=== PATIENT | male | born 1970 | race American Indian/Alaskan Native ===

== ENCOUNTER 2020-11-01 21:32 | Emergency (ER) | payer SELFPAY ==
[2020-11-01 22:04] VITALS: BP 142/95; PULSE 74
--- NOTE | 2020-11-01 22:15 | EDM.PDOC ---
ED HPI GENERAL MEDICAL PROBLEM - General Chief Complaint: Respiratory Problem Stated Complaint: DIFFICULTY BREATHING,PAIN ALL OVER BODY Time Seen by Provider: 11/01/20 22:00 Source of Information: Reports: Patient, RN, RN Notes Reviewed History Limitations: Reports: Altered Mental Status, Respiratory Distress - History of Present Illness INITIAL COMMENTS - FREE TEXT/NARRATIVE: Je is a 50 y/o male with a personal history of thyroid cancer with lung metastases who presents to the ED via personal vehicle with complaints of shortness of breath. The patient reports he was to receive radiation and chemotherapy via an oncologist in [place], though is unable to state which provider at which facility at this time. The patient reports his breathing became labored about one week ago and has progressively worsened in that time. He has not taken any medications for this problem as he reports he is homeless and currently staying at a friends house. The patient denies fever, shaking chills, vision changes, palpitations, dyspepsia, vomiting, dysuria, or diarrhea. He does attest to chest pain with deep breaths and nausea. The patient attest to smoking 1/4 pack of cigarettes per day. Additionally, he has been drinking alcohol for the past few days and smoked methamphetamines last night. - Related Data Allergies Allergy/AdvReac Type Severity Reaction Status Date / Time ampicillin Allergy Cannot Verified 11/01/20 21:57 Remember Home Meds: Home Meds Ibuprofen [Motrin] 800 mg PO Q8H PRN 03/23/15 [History] Past Medical History - Past Health History Medical/Surgical History: Denies Medical/Surgical History Cardiovascular History: Reports: Hypertension Endocrine/Metabolic History: Reports: Other (See Below) Other Endocrine/Metabolic History: thyroid cancer with thyroid removal Oncologic (Cancer) History: Reports: Lung, Thyroid - Infectious Disease History Infectious Disease History: Reports: Novel Coronavirus - Past Surgical History Other HEENT Surgeries/Procedures: tear duct surgery Other Musculoskeletal Surgeries/Procedures:: plates and screws in right lower leg Oncologic Surgical History: Reports: Other (See Below) Other Oncologic Surgeries/Procedures: thyroid removed Social & Family History - Family History Family Medical History: No Pertinent Family History - Tobacco Use Tobacco Use Status *Q: Current Every Day Tobacco User Years of Tobacco use: 0 Packs/Tins Daily: 0 - Caffeine Use Caffeine Use: Reports: Coffee, Energy Drinks, Soda, Tea - Living Situation & Occupation Living situation: Reports: with Family ED ROS GENERAL - Review of Systems Review Of Systems: Comprehensive ROS is negative, except as noted in HPI. ED EXAM, GENERAL - Physical Exam Exam: See Below Exam Limited By: Intoxication General Appearance: Lethargic, Mild Distress, Obese Eye Exam: Bilateral Eye: Conjunctival Injection, PERRL (4mm), Other (Patient unable to maintain eye contact during examination) Ears: Normal External Exam, Normal Canal, Hearing Grossly Normal, Normal TMs Ear Exam: Bilateral Ear: Auricle Normal, Canal Normal, TM normal Nose: Normal Inspection, Normal Mucosa, No Blood Throat/Mouth: Normal Lips, Normal Voice, No Airway Compromise. No: Normal Oropharynx (Dry mucous membranes) Head: Atraumatic, Normocephalic Neck: Normal Inspection, Supple, Non-Tender, Full Range of Motion. No: Lymphadenopathy (L), Lymphadenopathy (R) Respiratory/Chest: Decreased Breath Sounds, Rhonchi, Wheezing (Expiratory to left lower lung), Accessory Muscle Use. No: Chest Non-Tender (Pain with deep breath and coughing) Cardiovascular: Normal Peripheral Pulses, Regular Rate, Rhythm, No Edema, No Gallop, No JVD, No Murmur, No Rub Peripheral Pulses: 2+: Radial (L), Radial (R) GI/Abdominal: Soft, Non-Tender, No Distention, No Abnormal Bruit, No Mass, Pelvis Stable, Abnormal Bowel Sounds (Hypoactive bowel sounds), Other (Erythematous raised demarcated rash diffuse to anterior abdomen). No: Guarding, Rigid, Rebound (Male) Exam: Deferred Rectal (Males) Exam: Deferred Back Exam: Normal Inspection, Decreased Range of Motion Extremities: Non-Tender, No Pedal Edema, Normal Capillary Refill Neurological: Inattentive, Slow to Respond, Memory Loss Recent Events, Other (Lethargic). No: Normal Cognition, Normal Reflexes Psychiatric: Normal Mood, Flat Affect Skin Exam: Warm, Dry, Intact, Erythema, Rash (Diffuse to abdomen; Erythematous raised demarcated). No: Mottled, Pallor, Petechiae #1 Interpretation EKG Date: 11/01/20 Time: 21:46 Rhythm: NSR Rate (Beats/Min): 76 Ullin: RAD-Right Ullin Deviation P-Wave: Present QRS: Wide ST-T: Normal QT: Normal OR/PQ Interval: 0.189 Comparison: Change From Previous EKG (LAD on first EKG now RAD) EKG Interpretation Comments: Sinus rhythm; RAD; q-wave in III and aVR; No evidence of acute myocardial ischemia Course - Vital Signs Last Recorded V/S: Last Vital Signs Temp 97 F 11/01/20 21:57 Pulse 74 11/01/20 21:57 Resp 17 11/01/20 21:57 BP 142/95 H 11/01/20 21:57 Pulse Ox 96 11/01/20 21:57 - Orders/Labs/Meds Labs: Laboratory Tests 11/01/20 11/01/20 11/01/20 Range/Units 21:43 21:55 21:55 WBC 8.1 (5.0-10.0) 10^3/uL RBC 3.98 L (4.6-6.2) 10^6/uL Hgb 13.2 L D (14.0-18.0) g/dL Hct 41.2 (40.0-54.0) % MCV 103.5 H D (80-100) fL MCH 33.2 (27.0-34.0) pg MCHC 32.0 L (33.0-35.0) g/dL Plt Count 202 (150-450) 10^3/uL Neut % (Auto) 78.3 H (42.2-75.2) % Lymph % (Auto) 13.5 L (20.5-50.1) % [place] % (Auto) 6.2 (2-8) % Eos % (Auto) 1.5 (1.0-3.0) % Baso % (Auto) 0.5 (0.0-1.0) % Sodium 146 H (136-145) mmol/L Potassium 3.8 (3.5-5.1) mmol/L Chloride 105 (98-107) mmol/L Carbon Dioxide 28 (21-32) mmol/L Anion Gap 16.8 H (7-13) mEq/L BUN 18 (7-18) mg/dL Creatinine 1.50 H (0.70-1.30) mg/dL Est Cr Clr Drug Dosing TNP Estimated GFR (MDRD) 50 BUN/Creatinine Ratio 12.0 (No establ ref range) Glucose 107 H (70-99) mg/dL Lactic Acid (0.4-2.0) mmol/L Calcium 8.6 (8.5-10.1) mg/dL Magnesium 2.3 (1.8-2.4) mg/dL Total Bilirubin 0.7 (0.2-1.0) mg/dL AST 140 H (15-37) U/L ALT 158 H (16-63) U/L Alkaline Phosphatase 139 H (46-116) U/L Troponin I 0.096 H* (0.000-0.056) ng/mL C-Reactive Protein 1.7 H (0.0-0.9) mg/dL B-Natriuretic Peptide (0-100) pg/ml Total Protein 7.3 (6.4-8.2) g/dL Albumin 3.6 (3.4-5.0) g/dL Globulin 3.7 Albumin/Globulin Ratio 1.0 Ethyl Alcohol 21 (0) mg/dL Influenza Type A RNA Negative (NEGATIVE) Influenza Type B RNA Negative (NEGATIVE) SARS-CoV-2 RNA (TEODORA) Negative (NEGATIVE) 11/01/20 11/01/20 Range/Units 21:55 21:55 WBC (5.0-10.0) 10^3/uL RBC (4.6-6.2) 10^6/uL Hgb (14.0-18.0) g/dL Hct (40.0-54.0) % MCV (80-100) fL MCH (27.0-34.0) pg MCHC (33.0-35.0) g/dL Plt Count (150-450) 10^3/uL Neut % (Auto) (42.2-75.2) % Lymph % (Auto) (20.5-50.1) % Parker % (Auto) (2-8) % Eos % (Auto) (1.0-3.0) % Baso % (Auto) (0.0-1.0) % Sodium (136-145) mmol/L Potassium (3.5-5.1) mmol/L Chloride (98-107) mmol/L Carbon Dioxide (21-32) mmol/L Anion Gap (7-13) mEq/L BUN (7-18) mg/dL Creatinine (0.70-1.30) mg/dL Est Cr Clr Drug Dosing Estimated GFR (MDRD) BUN/Creatinine Ratio (No establ ref range) Glucose (70-99) mg/dL Lactic Acid 1.6 (0.4-2.0) mmol/L Calcium (8.5-10.1) mg/dL Magnesium (1.8-2.4) mg/dL Total Bilirubin (0.2-1.0) mg/dL AST (15-37) U/L ALT (16-63) U/L Alkaline Phosphatase (46-116) U/L Troponin I (0.000-0.056) ng/mL C-Reactive Protein (0.0-0.9) mg/dL B-Natriuretic Peptide 579 H (0-100) pg/ml Total Protein (6.4-8.2) g/dL Albumin (3.4-5.0) g/dL Globulin Albumin/Globulin Ratio Ethyl Alcohol (0) mg/dL Influenza Type A RNA (NEGATIVE) Influenza Type B RNA (NEGATIVE) SARS-CoV-2 RNA (TEODORA) (NEGATIVE) Meds: Medications Discontinued Medications Generic Name Dose Route Start Last Admin Trade Name Jaswant PRN Reason Stop Dose Admin Sodium Chloride 1,000 mls @ 999 mls/hr 11/01/20 22:33 11/01/20 22:44 Normal Saline IV 11/01/20 23:33 999 mls/hr .BOLUS ONE Administration Methylprednisolone Sodium Succinate 125 mg 11/01/20 22:33 11/01/20 22:44 Methylprednisolone Sodium Succinate 125 Mg/2 Ml Sdv IVPUSH 11/01/20 22:34 125 mg ONETIME ONE Administration Departure - Departure Time of Disposition: 23:10 Disposition: DC/Tfer to Acute Hospital 02 Condition: Fair Clinical Impression: Methamphetamine abuse, Shortness of breath, Elevated troponin, Elevated SGOT (AST), Elevated ALT measurement, Elevated alkaline phosphatase level Chest pain Qualifiers: Chest pain type: unspecified Qualified Code(s): R07.9 - Chest pain, unspecified Acute kidney failure, unspecified Qualifiers: Acute renal failure type: unspecified Qualified Code(s): N17.9 - Acute kidney failure, unspecified Congestive heart failure Qualifiers: Heart failure type: unspecified Heart failure chronicity: unspecified Qualified Code(s): I50.9 - Heart failure, unspecified - Discharge Information Forms: ED Department Discharge, Interfacility Transfer JUL[facility]A Sepsis Event Note (ED) - Evaluation Sepsis Screening Result: No Definite Risk
[2020-11-01 22:29] LABS: ANION GAP 16.8 mEq/L (7-13); CHLORIDE,CL 105 mmol/L (98-107); SODIUM,NA 146 mmol/L (136-145)
[2020-11-01] MEDS ORDERED: methylPREDNISolone Sodium Succinate 125 MG/2 ML SDV IVPUSH ONE (22:33)
[2020-11-01] MEDS ORDERED: Sodium Chloride 0.9% 1,000 ML IV ONE (22:33)
[2020-11-01 22:54] LABS: CORONAVIRUS COVID-19 NAA NEGATIVE (NEGATIVE)
--- NOTE | 2020-11-01 22:59 | CR ---
PROCEDURE INFORMATION: Exam: XR Chest Exam date and time: 11/01/2020 10:36 PM Age: 50 years old Clinical indication: Shortness of breath; Chest pain TECHNIQUE: Imaging protocol: XR of the chest. Views: 1 view. COMPARISON: No relevant prior studies available. FINDINGS: Lungs: There is enlargement of the pulmonary vascularity. There is thickening of the interstitial markings. Pleural spaces: Unremarkable. No pleural effusion. No pneumothorax. Heart/Mediastinum: The heart is mildly enlarged. Bones/joints: Unremarkable. IMPRESSION: Congestive heart failure.
== END 2020-11-01 23:38 ==
LOC: DL.ED 21:32
DX: I11.0 Hypertensive heart disease with heart failure (principal); I50.9 Heart failure, unspecified; N17.9 Acute kidney failure, unspecified; F15.10 Other stimulant abuse, uncomplicated; R79.89 Other specified abnormal findings of blood chemistry; R74.01 Elevation of levels of liver transaminase levels; R74.8 Abnormal levels of other serum enzymes; Z72.0 Tobacco use; Z88.1 Allergy status to other antibiotic agents; Z59.0 Homelessness; Z20.822 Contact with and (suspected) exposure to COVID-19; Z79.899 Other long term (current) drug therapy
CPT/HCPCS: 0240U; 36415; 71045; 80053; 80307; 83605; 83735; 83880; 84484; 85025; 86140; 93005; 96374; 99285; J2930; J7030; 93010; 99284

== ENCOUNTER 2020-11-26 16:38 | Emergency (ER) | payer MEDICAID ==
[2020-11-26] MEDS ORDERED: Sodium Chloride 0.9% 10 ML Syringe FLUSH PRN (16:48)
--- NOTE | 2020-11-26 16:48 | EDM.PDOC ---
"ED HPI GENERAL MEDICAL PROBLEM - General Chief Complaint: Cardiovascular Problem Stated Complaint: HEART PATIENT / SEVERE BREATHING ISSUES Time Seen by Provider: 11/26/20 16:48 Source of Information: Reports: Patient, Old Records, RN, RN Notes Reviewed History Limitations: Reports: No Limitations - History of Present Illness INITIAL COMMENTS - FREE TEXT/NARRATIVE: Pt arrives to ER by ambulance with c/o chest pain which has been recurrent for two or three days, and progressively worsening shortness of breath for several days. Pt denies cough, fever, chills, N/V, or abdominal pain. He reports edema to the B/L legs. Pt states he was prescribed Lasix in the past, but cannot recall why. He has not taken the Lasix for over one year. He has Hx of thyroid cancer, metastatic to the lung with Hx of thyroidectomy. He states he has not taken his thyroid medication for over 6 months. Pt states he is homeless off and on, and stays with his son when he can. He admits to marijuana and methamphetamine use, and drinks heavy on occasion. He claims he has had most of his medical care at [facility]. Pt is from [place]. Duration: Recurring Location: Reports: Chest Quality: Reports: Ache, Pressure Severity: Severe Improves with: Reports: None Worsens with: Reports: None Associated Symptoms: Reports: No Other Symptoms Chest Pain Score (Numeric/FACES): 10 - Related Data Allergies Allergy/AdvReac Type Severity Reaction Status Date / Time ampicillin Allergy Cannot Verified 11/26/20 17:16 Remember Past Medical History - Past Health History Medical/Surgical History: Denies Medical/Surgical History Cardiovascular History: Reports: Hypertension Psychiatric History: Reports: Addiction Endocrine/Metabolic History: Reports: Obesity/BMI 30+, Other (See Below) Other Endocrine/Metabolic History: thyroid cancer with thyroid removal Oncologic (Cancer) History: Reports: Lung, Thyroid - Infectious Disease History Infectious Disease History: Reports: Novel Coronavirus - Past Surgical History Other HEENT Surgeries/Procedures: tear duct surgery Other Musculoskeletal Surgeries/Procedures:: plates and screws in right lower leg Oncologic Surgical History: Reports: Other (See Below) Other Oncologic Surgeries/Procedures: thyroid removed Social & Family History - Family History Family Medical History: No Pertinent Family History - Tobacco Use Tobacco Use Status *Q: Current Every Day Tobacco User Tobacco Use Within Last Twelve Months: Cigarettes Packs/Tins Daily: 0.5 - Caffeine Use Caffeine Use: Reports: Coffee, Energy Drinks, Soda, Tea - Alcohol Use Alcohol Use History: Yes Alcohol Use Frequency: Binges - Recreational Drug Use Recreational Drug Use: Yes Drug Use in Last 12 Months: Yes Recreational Drug Type: Reports: Marijuana/Hashish, Methamphetamine - Living Situation & Occupation Living situation: Reports: with Family (Homeless at times) Occupation: Disabled ED ROS GENERAL - Review of Systems Review Of Systems: Comprehensive ROS is negative, except as noted in HPI. ED EXAM, GENERAL - Physical Exam Exam: See Below Exam Limited By: No Limitations General Appearance: Alert, No Apparent Distress, Other (Unkept appearance) Eye Exam: Bilateral Eye: EOMI, Normal Inspection, PERRL Nose: Normal Inspection, Normal Mucosa, No Blood Throat/Mouth: Normal Lips, Normal Voice, No Airway Compromise Head: Atraumatic, Normocephalic Neck: Normal Inspection, Supple, Non-Tender, Full Range of Motion Respiratory/Chest: No Respiratory Distress, No Accessory Muscle Use, Chest Non- Tender, Decreased Breath Sounds, Rales. No: Rhonchi, Wheezing Cardiovascular: Tachycardia, Irregularly Irregular, Other (+2 pitting edema to knees B/L) GI/Abdominal: Normal Bowel Sounds, Soft, Non-Tender. No: Guarding, Rigid, Rebound Back Exam: Normal Inspection Extremities: Normal Range of Motion, Non-Tender, Normal Capillary Refill, Pedal Edema Neurological: Alert, Oriented, CN II-XII Intact, Normal Cognition, No Motor/S ensory Deficits, Other (Pt has narcoleptic-like episodes ) Psychiatric: Anxious, Depressed Mood Skin Exam: Warm, Dry, Rash (Chronic appearing rash, worse at the abdomen, dry, scaley, pink.) #1 Interpretation EKG Date: 11/26/20 Time: 16:45 Rhythm: A-Fib Rate (Beats/Min): 117 Boron: LAD-Left Boron Deviation P-Wave: Absent QRS: Wide (nonspecific IVCD) ST-T: Normal QT: Normal Comparison: NA - No Prior EKG Course - Vital Signs Last Recorded V/S: Last Vital Signs Temp 97.7 F 11/26/20 17:06 Pulse 116 H 11/26/20 17:06 Resp 27 H 11/26/20 17:06 BP 130/76 11/26/20 17:06 Pulse Ox 94 L 11/26/20 17:06 - Orders/Labs/Meds Orders: Active Orders 24 hr Category Date Time Status EKG 12 Lead [EKG Documentation Completion] [RC] STAT Care 11/26/20 16:49 Active Peripheral IV Care [RC] . DIRECTED Care 11/26/20 16:49 Active DRUG SCREEN URINE BIORAD [URCHEM] Stat Lab 11/26/20 16:49 Ordered UA RFX ELIZABETH AND CULT IF INDIC [URIN] Stat Lab 11/26/20 16:49 Ordered Heparin Sodium/0.45% NaCl [Heparin 25,000 Units in 1/2 Med 11/26/20 18:15 Active NS 500 ML] 25,000 units in 500 ml IV TITRATE Sodium Chloride 0.9% [Saline Flush] Med 11/26/20 16:48 Active 10 ml FLUSH ASDIRECTED PRN Peripheral IV Insertion Adult [OM.PC] Stat Oth 11/26/20 16:49 Ordered Medication Orders Heparin Sodium/Sodium Chloride (Heparin 25,000 Units In 1/2 Ns 500 Ml) 25,000 units in 500 mls @ 35.707 mls/hr IV TITRATE ESTRELLITA; Protocol Last Admin: 11/26/20 18:20 Dose: 12 units/kg/hr, 35.707 mls/hr Documented by: ANDREW Cosigned by: ANDREAS Sodium Chloride (Sodium Chloride 0.9% 10 Ml Syringe) 10 ml FLUSH ASDIRECTED PRN PRN Reason: Keep Vein Open Labs: Laboratory Tests 11/26/20 11/26/20 11/26/20 Range/Units 16:54 16:54 16:54 WBC 10.0 (5.0-10.0) 10^3/uL RBC 4.24 L (4.6-6.2) 10^6/uL Hgb 13.8 L (14.0-18.0) g/dL Hct 42.3 (40.0-54.0) % MCV 99.8 D (80-100) fL MCH 32.5 (27.0-34.0) pg MCHC 32.6 L (33.0-35.0) g/dL Plt Count 287 D (150-450) 10^3/uL Neut % (Auto) 81.3 H (42.2-75.2) % Lymph % (Auto) 11.8 L (20.5-50.1) % [place] % (Auto) 6.2 (2-8) % Eos % (Auto) 0.4 L (1.0-3.0) % Baso % (Auto) 0.3 (0.0-1.0) % PT 12.7 H (9.0-12.0) SEC INR 1.3 H (0.9-1.2) APTT 27.2 (22.0-34.0) SEC Sodium 140 (136-145) mmol/L Potassium 3.6 (3.5-5.1) mmol/L Chloride 101 (98-107) mmol/L Carbon Dioxide 27 (21-32) mmol/L Anion Gap 15.6 H (7-13) mEq/L BUN 16 (7-18) mg/dL Creatinine 1.42 H (0.70-1.30) mg/dL Est Cr Clr Drug Dosing TNP Estimated GFR (MDRD) 53 BUN/Creatinine Ratio 11.3 (No establ ref range) Glucose 120 H (70-99) mg/dL Calcium 8.4 L (8.5-10.1) mg/dL Total Bilirubin 1.4 H (0.2-1.0) mg/dL AST 167 H (15-37) U/L ALT 131 H (16-63) U/L Alkaline Phosphatase 131 H (46-116) U/L Troponin I 0.093 H* (0.000-0.056) ng/mL B-Natriuretic Peptide 1420 H (0-100) pg/ml Total Protein 7.2 (6.4-8.2) g/dL Albumin 3.7 (3.4-5.0) g/dL Globulin 3.5 Albumin/Globulin Ratio 1.1 Free T4 0.27 L (0.76-1.46) ng/dL TSH, Ultra Sensitive 89.31 H (0.36-3.74) uIU/mL Ethyl Alcohol < 3 (0) mg/dL SARS-CoV-2 RNA (TEODORA) (NEGATIVE) 11/26/20 Range/Units 17:25 WBC (5.0-10.0) 10^3/uL RBC (4.6-6.2) 10^6/uL Hgb (14.0-18.0) g/dL Hct (40.0-54.0) % MCV (80-100) fL MCH (27.0-34.0) pg MCHC (33.0-35.0) g/dL Plt Count (150-450) 10^3/uL Neut % (Auto) (42.2-75.2) % Lymph % (Auto) (20.5-50.1) % [place] % (Auto) (2-8) % Eos % (Auto) (1.0-3.0) % Baso % (Auto) (0.0-1.0) % PT (9.0-12.0) SEC INR (0.9-1.2) APTT (22.0-34.0) SEC Sodium (136-145) mmol/L Potassium (3.5-5.1) mmol/L Chloride (98-107) mmol/L Carbon Dioxide (21-32) mmol/L Anion Gap (7-13) mEq/L BUN (7-18) mg/dL Creatinine (0.70-1.30) mg/dL Est Cr Clr Drug Dosing Estimated GFR (MDRD) BUN/Creatinine Ratio (No establ ref range) Glucose (70-99) mg/dL Calcium (8.5-10.1) mg/dL Total Bilirubin (0.2-1.0) mg/dL AST (15-37) U/L ALT (16-63) U/L Alkaline Phosphatase (46-116) U/L Troponin I (0.000-0.056) ng/mL B-Natriuretic Peptide (0-100) pg/ml Total Protein (6.4-8.2) g/dL Albumin (3.4-5.0) g/dL Globulin Albumin/Globulin Ratio Free T4 (0.76-1.46) ng/dL TSH, Ultra Sensitive (0.36-3.74) uIU/mL Ethyl Alcohol (0) mg/dL SARS-CoV-2 RNA (TEODORA) Negative (NEGATIVE) Meds: Medications Generic Name Dose Route Start Last Admin Trade Name Freq PRN Reason Stop Dose Admin Heparin Sodium/Sodium Chloride 25,000 units in 500 mls @ 35.707 mls/hr 11/26/20 18:15 11/26/20 18:20 Heparin 25,000 Units In 07/01 Ns 500 Ml IV 12 units/kg/hr TITRATE ESTRELLITA 35.707 mls/hr Administration Protocol 12 UNITS/KG/HR Sodium Chloride 10 ml 11/26/20 16:48 Sodium Chloride 0.9% 10 Ml Syringe FLUSH ASDIRECTED PRN Keep Vein Open Discontinued Medications Generic Name Dose Route Start Last Admin Trade Name Freq PRN Reason Stop Dose Admin Aspirin 324 mg 11/26/20 18:04 11/26/20 18:19 Aspirin 81 Mg Tab.Chew PO 11/26/20 18:05 324 mg ONETIME ONE Administration Furosemide 60 mg 11/26/20 18:06 11/26/20 18:20 Furosemide 100 Mg/10 Ml Sdv IVPUSH 11/26/20 18:07 60 mg ONETIME ONE Administration Heparin Sodium (Porcine) 4,000 units 11/26/20 18:05 11/26/20 18:19 Heparin Sodium 5,000 Units/Ml Vial IVPUSH 11/26/20 18:06 4,000 units .BOLUS ONE Administration Levothyroxine Sodium 300 mcg 11/26/20 18:43 Levothyroxine 150 Mcg Tab PO 11/26/20 18:44 ONETIME ONE - Radiology Interpretation Free Text/Narrative:: [facility] Final Radiology Report Call: [phone] assistance Online chat: [email or web address] Name: LASHA BUTT Age: 50Years M Date: 11/26/2020 SSN: -- : 1970 Study: CR CHEST 1V FRONTAL Requesting Physician: DOMINIC HANSON Images: 2 Addl Studies: Provided Clinical History: short of breath, Hx CHF Contrast: Contrast Medium: Contrast Amount: Contrast Method: Page 1 of 2 PROCEDURE INFORMATION: Exam: XR Chest Exam date and time: 11/26/2020 5:06 PM Age: 50 years old Clinical indication: Other: Short of breath, HX chf TECHNIQUE: Imaging protocol: XR of the chest. Views: 1 view. Total images: 2 COMPARISON: CR Chest 1V Frontal 11/01/2020 10:36 PM FINDINGS: Lungs: Low lung volumes. Moderate central vascular congestion. Mild bilateral perihilar and basilar interstitial and alveolar opacities suggesting either pulmonary edema or bilateral pulmonary infection/pneumonia. Pleural spaces: Blunted right lateral costophrenic angle suggesting small basilar effusion versus pleural scarring. No pneumothorax. Heart/Mediastinum: Moderate cardiomegaly. No tracheal/mediastinal shift. Question narrowing of the left mainstem bronchus. Recommend noncontrast CT assessment. Bones/joints: No acute osseous abnormalities are identified. IMPRESSION: 1. Cardiomegaly and vascular congestive changes consistent with CHF, with faint perihilar and basilar interstitial and ground-glass opacities fissures for mild pulmonary edema versus pneumonia. 2. Small right basilar pleural effusion. 3. Questionable narrowing of the left mainstem bronchus, possibly artifactual. Noncontrast chest CT evaluation recommended. LASHA BUTT | Final Radiology Report CONFIDENTIALITY STATEMENT This report is intended only for use by the referring physician, and only in accordance with law. If you received this in error, call [phone]. Page 2 of 2 Thank you for allowing us to participate in the care of your patient. Dictated and Authenticated by: Leo Molina MD 11/26/2020 5:22 PM Central Time ([place] & [place]) Departure - Departure Time of Disposition: 18:52 Disposition: DC/Tfer to [facility] 02 Reason for Transfer *Q: Other Condition: Serious Clinical Impression: Non-ST elevated myocardial infarction (non-STEMI), New onset atrial fibrillation, Hypothyroidism (acquired), History of thyroid cancer, History of malignant neoplasm metastatic to lung, Noncompliance with medication regimen Acute CHF (congestive heart failure) Qualifiers: Heart failure type: unspecified Qualified Code(s): I50.9 - Heart failure, unspecified Forms: ED Department Discharge, Interfacility Transfer [facility] Sepsis Event Note (ED) - Focused Exam Vital Signs: Vital Signs Temp Pulse Resp BP Pulse Ox 11/26/20 17:06 97.7 F 116 H 27 H 130/76 94 L - My Orders Last 24 Hours: My Active Orders 11/26/20 16:48 Sodium Chloride 0.9% [Saline Flush] 10 ml FLUSH ASDIRECTED PRN 11/26/20 16:49 EKG 12 Lead [EKG Documentation Completion] [RC] STAT Peripheral IV Care [RC] . DIRECTED DRUG SCREEN URINE BIORAD [URCHEM] Stat UA RFX ELIZABETH AND CULT IF INDIC [URIN] Stat Peripheral IV Insertion Adult [OM.PC] Stat 11/26/20 18:15 Heparin Sodium/0.45% NaCl [Heparin 25,000 Units in 1/2 NS 500 ML] 25,000 units in 500 ml IV TITRATE - Assessment/Plan Last 24 Hours: My Active Orders 11/26/20 16:48 Sodium Chloride 0.9% [Saline Flush] 10 ml FLUSH ASDIRECTED PRN 11/26/20 16:49 EKG 12 Lead [EKG Documentation Completion] [RC] STAT Peripheral IV Care [RC] . DIRECTED DRUG SCREEN URINE BIORAD [URCHEM] Stat UA RFX ELIZABETH AND CULT IF INDIC [URIN] Stat Peripheral IV Insertion Adult [OM.PC] Stat 11/26/20 18:15 Heparin Sodium/0.45% NaCl [Heparin 25,000 Units in 1/2 NS 500 ML] 25,000 units in 500 ml IV TITRATE"
[2020-11-26 17:16] VITALS: BP 130/76; PULSE 116
[2020-11-26 17:20] LABS: PTT,PARTIAL THROMBOPLSTIN TIME 27.2 SEC (22.0-34.0)
--- NOTE | 2020-11-26 17:23 | CR ---
PROCEDURE INFORMATION: Exam: XR Chest Exam date and time: 11/26/2020 5:06 PM Age: 50 years old Clinical indication: Other: Short of breath, HX chf TECHNIQUE: Imaging protocol: XR of the chest. Views: 1 view. Total images: 2 COMPARISON: CR Chest 1V Frontal 11/01/2020 10:36 PM FINDINGS: Lungs: Low lung volumes. Moderate central vascular congestion. Mild bilateral perihilar and basilar interstitial and alveolar opacities suggesting either pulmonary edema or bilateral pulmonary infection/pneumonia. Pleural spaces: Blunted right lateral costophrenic angle suggesting small basilar effusion versus pleural scarring. No pneumothorax. Heart/Mediastinum: Moderate cardiomegaly. No tracheal/mediastinal shift. Question narrowing of the left mainstem bronchus. Recommend noncontrast CT assessment. Bones/joints: No acute osseous abnormalities are identified. IMPRESSION: 1. Cardiomegaly and vascular congestive changes consistent with CHF, with faint perihilar and basilar interstitial and ground-glass opacities fissures for mild pulmonary edema versus pneumonia. 2. Small right basilar pleural effusion. 3. Questionable narrowing of the left mainstem bronchus, possibly artifactual. Noncontrast chest CT evaluation recommended.
[2020-11-26 17:30] LABS: ANION GAP 15.6 mEq/L (7-13); CHLORIDE,CL 101 mmol/L (98-107); SODIUM,NA 140 mmol/L (136-145)
[2020-11-26] MEDS ORDERED: Aspirin 81 MG Tab.Chew PO ONE (18:04)
[2020-11-26] MEDS ORDERED: Heparin Sodium 5,000 Units/ML Vial IVPUSH ONE (18:05)
[2020-11-26] MEDS ORDERED: Furosemide 100 MG/10 ML SDV IVPUSH ONE (18:06)
[2020-11-26] MEDS ORDERED: Heparin Sodium/0.45% NaCl 25,000 UNITS/500 ML BAG IV SCH ×2 (18:15)
[2020-11-26] MEDS ORDERED: Levothyroxine 150 MCG Tab PO ONE (18:43)
[2020-11-26] MEDS ORDERED: Morphine 4 MG/ML Syringe IVPUSH ONE (19:12)
== END 2020-11-26 19:33 ==
LOC: DL.ED 16:38
DX: I21.4 Non-ST elevation (NSTEMI) myocardial infarction (principal); I48.91 Unspecified atrial fibrillation; E03.9 Hypothyroidism, unspecified; I10 Essential (primary) hypertension; E66.9 Obesity, unspecified; Z72.0 Tobacco use; Z85.850 Personal history of malignant neoplasm of thyroid; Z91.14 Patient's other noncompliance with medication regimen; Z85.118 Personal history of other malignant neoplasm of bronchus and lung; Z20.822 Contact with and (suspected) exposure to COVID-19; Z88.0 Allergy status to penicillin
CPT/HCPCS: 36415; 71045; 80053; 80305; 80307; 81001; 83880; 84439; 84443; 84484; 85025; 85610; 85730; 87635; 93005; 96365; 96366; 96375; 99285; A9270; J1644; J1940; J2270; 93010; U0002

== ENCOUNTER 2020-12-17 00:18 | Emergency (ER) | payer MEDICAID ==
--- NOTE | 2020-12-17 00:34 | EDM.PDOC ---
ED HPI GENERAL MEDICAL PROBLEM - General Stated Complaint: DIFFICULTY BREATHING Time Seen by Provider: 12/17/20 00:33 Source of Information: Reports: Patient, RN, RN Notes Reviewed History Limitations: Reports: Respiratory Distress - History of Present Illness INITIAL COMMENTS - FREE TEXT/NARRATIVE: Patient is a 50-year-old male who presents to ER with complaint of shortness of breath and respiratory distress. He states this began 3 to 4 days ago and is progressively gotten worse. Patient states he has not slept in the last several days. Patient previous chart shows history of thyroid cancer, thyroidectomy approximately 1 to 1-1/2 years ago. On November 26 he did have a non-STEMI and was transferred to [facility] in [place]. 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 Upon arrival to the ER patient's oxygen saturation is 75%. Patient placed on 6 L per nasal cannula to bring oxygen up to high 90s. Oxygen back down to 4 L, patient stays 98 to 100%. Patient denies any chest pains, any recent illness, fever, chills, nausea, vomiting, diarrhea. Onset: Gradual - Related Data Allergies Allergy/AdvReac Type Severity Reaction Status Date / Time ampicillin Allergy Cannot Verified 11/26/20 17:16 Remember Past Medical History - Past Health History Medical/Surgical History: Denies Medical/Surgical History Cardiovascular History: Reports: Heart Failure, Hypertension Psychiatric History: Reports: Addiction Endocrine/Metabolic History: Reports: Obesity/BMI 30+, Other (See Below) Other Endocrine/Metabolic History: thyroid cancer with thyroid removal Oncologic (Cancer) History: Reports: Lung, Thyroid - Infectious Disease History Infectious Disease History: Reports: Novel Coronavirus - Past Surgical History Other HEENT Surgeries/Procedures: tear duct surgery Other Musculoskeletal Surgeries/Procedures:: plates and screws in right lower leg Oncologic Surgical History: Reports: Other (See Below) Other Oncologic Surgeries/Procedures: thyroid removed Social & Family History - Family History Family Medical History: No Pertinent Family History - Caffeine Use Caffeine Use: Reports: Coffee - Living Situation & Occupation Living situation: Reports: with Family (Homeless at times) Occupation: Disabled ED ROS GENERAL - Review of Systems Review Of Systems: Comprehensive ROS is negative, except as noted in HPI. ED EXAM, GENERAL - Physical Exam Exam: See Below Exam Limited By: Altered Mental Status General Appearance: Alert, WD/WN, Moderate Distress, Obese Eye Exam: Bilateral Eye: Normal Inspection Ears: Normal External Exam, Hearing Grossly Normal Nose: Normal Inspection Throat/Mouth: Normal Inspection, Normal Voice, No Airway Compromise Head: Atraumatic, Normocephalic Neck: Normal Inspection, Supple, Non-Tender, Full Range of Motion Respiratory/Chest: Respiratory Distress, Decreased Breath Sounds, Crackles Cardiovascular: Tachycardia, Irregularly Irregular Peripheral Pulses: 2+: Radial (L), Radial (R) GI/Abdominal: Normal Bowel Sounds, Soft, Non-Tender (Male) Exam: Deferred Rectal (Males) Exam: Deferred Extremities: Normal Range of Motion, Non-Tender, No Pedal Edema, Normal Capillary Refill Neurological: Confused, Disoriented, Slow to Respond Psychiatric: Anxious Skin Exam: Cool, Cyanosis Lymphatic: No Adenopathy #1 Interpretation EKG Date: 12/17/20 Time: 00:25 Rhythm: A-Flutter Rate (Beats/Min): 110 Norris: LAD-Left Norris Deviation P-Wave: Absent QRS: Normal ST-T: Normal QT: Normal Comparison: No Change Course - Vital Signs Last Recorded V/S: Last Vital Signs Temp 96.5 F L 12/17/20 00:30 Pulse 110 H 12/17/20 00:30 Resp 30 H 12/17/20 00:30 BP 159/98 H 12/17/20 00:30 Pulse Ox 75 L 12/17/20 00:30 - Orders/Labs/Meds Orders: Active Orders 24 hr Category Date Time Status CPAP Adult [RT BiPAP/CPAP] [RC] ASDIRECTED Care 12/17/20 02:39 Active EKG Documentation Completion [RC] STAT Care 12/17/20 00:25 Active Lorenzo Catheter Insertion [Insert Urinary Catheter] [OM. Care 12/17/20 03:15 Ordered PC] Q24H Urinary Catheter Assessment [RC] ASDIRECTED Care 12/17/20 03:12 Active CULTURE BLOOD [BC] Stat Lab 12/17/20 01:18 Results CULTURE BLOOD [BC] Stat Lab 12/17/20 02:32 Results REFLEX LACTIC ACID YES OR NO [CHEM] Routine Lab 12/17/20 03:06 Received Blood Culture x2 Reflex Set [OM.PC] Stat Oth 12/17/20 00:26 Ordered Labs: Laboratory Tests 06/20/21 06/20/21 06/20/21 Range/Units 00:32 01:18 01:18 WBC 13.3 H (5.0-10.0) 10^3/uL RBC 4.67 (4.6-6.2) 10^6/uL Hgb 15.2 (14.0-18.0) g/dL Hct 45.9 (40.0-54.0) % MCV 98.3 (80-100) fL MCH 32.5 (27.0-34.0) pg MCHC 33.1 (33.0-35.0) g/dL Plt Count 195 D (150-450) 10^3/uL Neut % (Auto) 80.7 H (42.2-75.2) % Lymph % (Auto) 10.6 L (20.5-50.1) % [place] % (Auto) 7.8 (2-8) % Eos % (Auto) 0.5 L (1.0-3.0) % Baso % (Auto) 0.4 (0.0-1.0) % ABG pH (7.35-7.45) ABG pCO2 (35-45) mmHg ABG pO2 (70-100) mmHg ABG HCO3 (22-26) mmol/L ABG O2 Saturation (95-100) % ABG Base Excess ((-2)-(+3)) mmol/L Trevor Test O2 Delivery Device Sodium 137 (136-145) mmol/L Potassium 4.7 (3.5-5.1) mmol/L Chloride 98 (98-107) mmol/L Carbon Dioxide 25 (21-32) mmol/L Anion Gap 18.7 H (7-13) mEq/L BUN 37 H (7-18) mg/dL Creatinine 2.02 H (0.70-1.30) mg/dL Est Cr Clr Drug Dosing TNP Estimated GFR (MDRD) 35 BUN/Creatinine Ratio 18.3 (No establ ref range) Glucose 102 H (70-99) mg/dL Lactic Acid (0.4-2.0) mmol/L Calcium 8.7 (8.5-10.1) mg/dL Magnesium 2.5 H (1.8-2.4) mg/dL Total Bilirubin 3.2 H (0.2-1.0) mg/dL AST 1734 H (15-37) U/L ALT 1062 H (16-63) U/L Alkaline Phosphatase 340 H (46-116) U/L Troponin I High Sens 384 H* (<=76) pg/mL C-Reactive Protein 7.8 H (0.0-0.9) mg/dL B-Natriuretic Peptide 1180 H (0-100) pg/ml Total Protein 8.2 (6.4-8.2) g/dL Albumin 4.0 (3.4-5.0) g/dL Globulin 4.2 Albumin/Globulin Ratio 1.0 Urine Color (YELLOW) Urine Appearance (CLEAR) Urine pH (5.0-9.0) Ur Specific [place] (1.005-1.030) Urine Protein (NEGATIVE) Urine Glucose (UA) (NEGATIVE) Urine Ketones (NEGATIVE) Urine Occult Blood (NEGATIVE) Urine Nitrite (NEGATIVE) Urine Bilirubin (NEGATIVE) Urine Urobilinogen (0.2-1.0) mg/dL Ur Leukocyte Esterase (NEGATIVE) U Hyaline Cast (Auto) Urine RBC /HPF Urine WBC (0-5/HPF) /HPF Ur Epithelial Cells (NOT SEEN) /HPF Amorphous Sediment (NOT SEEN) /HPF Urine Bacteria (0-FEW/HPF) /HPF Fine Granular Casts (NOT SEEN) /LPF Urine Mucus (NOT SEEN) /LPF Urine Opiates Screen (NEGATIVE) Ur Oxycodone Screen (NEGATIVE) Urine Methadone Screen (NEGATIVE) Ur Barbiturates Screen (NEGATIVE) U Tricyclic Antidepress (NEGATIVE) Ur Phencyclidine Scrn (NEGATIVE) Ur Amphetamine Screen (NEGATIVE) U Methamphetamines Scrn (NEGATIVE) Urine MDMA Screen (NEGATIVE) U Benzodiazepines Scrn (NEGATIVE) Urine Cocaine Screen (NEGATIVE) U Marijuana (THC) Screen (NEGATIVE) Ethyl Alcohol < 3 (0) mg/dL Influenza Type A RNA Negative (NEGATIVE) Influenza Type B RNA Negative (NEGATIVE) SARS-CoV-2 RNA ([place]) Negative (NEGATIVE) 12/17/20 12/17/20 12/17/20 Range/Units 01:51 02:32 04:52 WBC (5.0-10.0) 10^3/uL RBC (4.6-6.2) 10^6/uL Hgb (14.0-18.0) g/dL Hct (40.0-54.0) % MCV (80-100) fL MCH (27.0-34.0) pg MCHC (33.0-35.0) g/dL Plt Count (150-450) 10^3/uL Neut % (Auto) (42.2-75.2) % Lymph % (Auto) (20.5-50.1) % [place] % (Auto) (2-8) % Eos % (Auto) (1.0-3.0) % Baso % (Auto) (0.0-1.0) % ABG pH 7.30 L (7.35-7.45) ABG pCO2 57 H (35-45) mmHg ABG pO2 39 L* (70-100) mmHg ABG HCO3 27.0 H (22-26) mmol/L ABG O2 Saturation 50 L (95-100) % ABG Base Excess -0 ((-2)-(+3)) mmol/L Trevor Test Positive O2 Delivery Device Nasal cannula Sodium (136-145) mmol/L Potassium (3.5-5.1) mmol/L Chloride (98-107) mmol/L Carbon Dioxide (21-32) mmol/L Anion Gap (7-13) mEq/L BUN (7-18) mg/dL Creatinine (0.70-1.30) mg/dL Est Cr Clr Drug Dosing Estimated GFR (MDRD) BUN/Creatinine Ratio (No establ ref range) Glucose (70-99) mg/dL Lactic Acid 2.6 H* (0.4-2.0) mmol/L Calcium (8.5-10.1) mg/dL Magnesium (1.8-2.4) mg/dL Total Bilirubin (0.2-1.0) mg/dL AST (15-37) U/L ALT (16-63) U/L Alkaline Phosphatase (46-116) U/L Troponin I High Sens (<=76) pg/mL C-Reactive Protein (0.0-0.9) mg/dL B-Natriuretic Peptide (0-100) pg/ml Total Protein (6.4-8.2) g/dL Albumin (3.4-5.0) g/dL Globulin Albumin/Globulin Ratio Urine Color (YELLOW) Urine Appearance (CLEAR) Urine pH (5.0-9.0) Ur Specific [place] (1.005-1.030) Urine Protein (NEGATIVE) Urine Glucose (UA) (NEGATIVE) Urine Ketones (NEGATIVE) Urine Occult Blood (NEGATIVE) Urine Nitrite (NEGATIVE) Urine Bilirubin (NEGATIVE) Urine Urobilinogen (0.2-1.0) mg/dL Ur Leukocyte Esterase (NEGATIVE) U Hyaline Cast (Auto) Urine RBC /HPF Urine WBC (0-5/HPF) /HPF Ur Epithelial Cells (NOT SEEN) /HPF Amorphous Sediment (NOT SEEN) /HPF Urine Bacteria (0-FEW/HPF) /HPF Fine Granular Casts (NOT SEEN) /LPF Urine Mucus (NOT SEEN) /LPF Urine Opiates Screen Negative (NEGATIVE) Ur Oxycodone Screen Negative (NEGATIVE) Urine Methadone Screen Negative (NEGATIVE) Ur Barbiturates Screen Negative (NEGATIVE) U Tricyclic Antidepress Negative (NEGATIVE) Ur Phencyclidine Scrn Negative (NEGATIVE) Ur Amphetamine Screen Positive H (NEGATIVE) U Methamphetamines Scrn Positive H (NEGATIVE) Urine MDMA Screen Negative (NEGATIVE) U Benzodiazepines Scrn Negative (NEGATIVE) Urine Cocaine Screen Negative (NEGATIVE) U Marijuana (THC) Screen Positive H (NEGATIVE) Ethyl Alcohol (0) mg/dL Influenza Type A RNA (NEGATIVE) Influenza Type B RNA (NEGATIVE) SARS-CoV-2 RNA ([place]) (NEGATIVE) 12/17/20 Range/Units 04:52 WBC (5.0-10.0) 10^3/uL RBC (4.6-6.2) 10^6/uL Hgb (14.0-18.0) g/dL Hct (40.0-54.0) % MCV (80-100) fL MCH (27.0-34.0) pg MCHC (33.0-35.0) g/dL Plt Count (150-450) 10^3/uL Neut % (Auto) (42.2-75.2) % Lymph % (Auto) (20.5-50.1) % [place] % (Auto) (2-8) % Eos % (Auto) (1.0-3.0) % Baso % (Auto) (0.0-1.0) % ABG pH (7.35-7.45) ABG pCO2 (35-45) mmHg ABG pO2 (70-100) mmHg ABG HCO3 (22-26) mmol/L ABG O2 Saturation (95-100) % ABG Base Excess ((-2)-(+3)) mmol/L Trevor Test O2 Delivery Device Sodium (136-145) mmol/L Potassium (3.5-5.1) mmol/L Chloride (98-107) mmol/L Carbon Dioxide (21-32) mmol/L Anion Gap (7-13) mEq/L BUN (7-18) mg/dL Creatinine (0.70-1.30) mg/dL Est Cr Clr Drug Dosing Estimated GFR (MDRD) BUN/Creatinine Ratio (No establ ref range) Glucose (70-99) mg/dL Lactic Acid (0.4-2.0) mmol/L Calcium (8.5-10.1) mg/dL Magnesium (1.8-2.4) mg/dL Total Bilirubin (0.2-1.0) mg/dL AST (15-37) U/L ALT (16-63) U/L Alkaline Phosphatase (46-116) U/L Troponin I High Sens (<=76) pg/mL C-Reactive Protein (0.0-0.9) mg/dL B-Natriuretic Peptide (0-100) pg/ml Total Protein (6.4-8.2) g/dL Albumin (3.4-5.0) g/dL Globulin Albumin/Globulin Ratio Urine Color Dark yellow (YELLOW) Urine Appearance Cloudy (CLEAR) Urine pH 5.5 (5.0-9.0) Ur Specific [place] >= 1.030 (1.005-1.030) Urine Protein 100 H (NEGATIVE) Urine Glucose (UA) Negative (NEGATIVE) Urine Ketones Negative (NEGATIVE) Urine Occult Blood Negative (NEGATIVE) Urine Nitrite Negative (NEGATIVE) Urine Bilirubin Small H (NEGATIVE) Urine Urobilinogen 2.0 H (0.2-1.0) mg/dL Ur Leukocyte Esterase Negative (NEGATIVE) U Hyaline Cast (Auto) Many Urine RBC 0-5 /HPF Urine WBC 0-5 (0-5/HPF) /HPF Ur Epithelial Cells Few (NOT SEEN) /HPF Amorphous Sediment Few (NOT SEEN) /HPF Urine Bacteria Few (0-FEW/HPF) /HPF Fine Granular Casts Few H (NOT SEEN) /LPF Urine Mucus Many H (NOT SEEN) /LPF Urine Opiates Screen (NEGATIVE) Ur Oxycodone Screen (NEGATIVE) Urine Methadone Screen (NEGATIVE) Ur Barbiturates Screen (NEGATIVE) U Tricyclic Antidepress (NEGATIVE) Ur Phencyclidine Scrn (NEGATIVE) Ur Amphetamine Screen (NEGATIVE) U Methamphetamines Scrn (NEGATIVE) Urine MDMA Screen (NEGATIVE) U Benzodiazepines Scrn (NEGATIVE) Urine Cocaine Screen (NEGATIVE) U Marijuana (THC) Screen (NEGATIVE) Ethyl Alcohol (0) mg/dL Influenza Type A RNA (NEGATIVE) Influenza Type B RNA (NEGATIVE) SARS-CoV-2 RNA ([place]) (NEGATIVE) Meds: Medications Discontinued Medications Generic Name Dose Route Start Last Admin Trade Name Freq PRN Reason Stop Dose Admin Furosemide 40 mg 12/17/20 03:08 12/17/20 04:50 Furosemide 40 Mg/4 Ml Vial IVPUSH 12/17/20 03:09 40 mg ONETIME ONE Administration Lorazepam 0.5 mg 12/17/20 04:24 12/17/20 05:27 Lorazepam 2 Mg/Ml Sdv IVPUSH 12/17/20 04:25 Not Given ONETIME ONE Lorazepam 2 mg 12/17/20 05:10 12/17/20 04:50 Lorazepam 2 Mg/Ml Sdv IVPUSH 12/17/20 05:11 2 mg ONETIME ONE Administration - Radiology Interpretation Free Text/Narrative:: Chest xray: PROCEDURE INFORMATION: Exam: XR Chest Exam date and time: 12/17/2020 1:28 AM Age: 50 years old Clinical indication: Other: Chest pain TECHNIQUE: Imaging protocol: XR of the chest. Views: 1 view. COMPARISON: CR Chest 1V Frontal 11/26/2020 5:06 PM FINDINGS: Lungs: Bilateral pulmonary venous congestive changes with findings consistent with mild CHF similar to the prior study. Pleural spaces: Unremarkable. No pleural effusion. No pneumothorax. Heart/Mediastinum: Cardiomegaly. Bones/joints: Unremarkable. IMPRESSION: Cardiomegaly with mild congestive heart failure changes similar to the prior study Thank you for allowing us to participate in the care of your patient. Dictated and Authenticated by: Afshin Fallon MD 12/17/2020 2:52 AM Central Time ([place] & [place]) Head CT wo contrast: PROCEDURE INFORMATION: Exam: CT Head Without Contrast Exam date and time: 12/17/2020 4:45 AM Age: 50 years old Clinical indication: Other: Altered mentation; Additional info: Altered mental status TECHNIQUE: Imaging protocol: Computed tomography of the head without contrast. Radiation optimization: All CT scans at this facility use at least one of these dose optimization techniques: automated exposure control; mA and/or kV adjustment per patient size (includes targeted exams where dose is matched to clinical indication); or iterative reconstruction. COMPARISON: No relevant prior studies available. FINDINGS: Brain: Normal. No hemorrhage. Unremarkable white matter. No mass effect. Cerebral ventricles: No ventriculomegaly. Paranasal sinuses: Chronic frontal sinusitis changes. No fluid levels. Mastoid air cells: Visualized mastoid air cells are well aerated. Bones/joints: Chronic deformity of the nasal arch but no acute fracture or dislocation.. Soft tissues: Unremarkable. IMPRESSION: No acute intracranial abnormality. Thank you for allowing us to participate in the care of your patient. Dictated and Authenticated by: Afshin Fallon MD 12/17/2020 4:58 AM Central Time ([place] & [place]) See rad report - Re-Assessments/Exams Free Text/Narrative Re-Assessment/Exam: 12/17/20 03:12 Discussed patient case with Dr. Dee at [facility] who agreed to accept the patient for transfer. Patient was poked multiple times for IV access and lab draw. Was unable to obtain PT/INR. 12/17/20 03:42 Patient became very combative when attempting to straight cath. He ripped his CPAP mask off, became blue, and began urinating. Patient became short of breath, cyanotic, and very frantic. Dr. Dee would also like a head CT done if possible. Patient may need to be medicated and intubated if we are unable to work with him. 12/17/20 05:33 [facility] flight unable to fly fixed wing or chopper due to weather. Patient trialed on an oxygen mask, maintaining oxygen saturation at 100%. Blood pressure remained stable, heart rate tacky in the 1 teens. Patient resting comfortably. Patient will be transferred per ground ambulance to [facility] in [place]. Update was called to Dr. Dee. Departure - Departure Time of Disposition: 05:34 Disposition: DC/Tfer to Acute Hospital 02 Condition: Serious Clinical Impression: Non-ST elevated myocardial infarction (non-STEMI), History of thyroid cancer, Respiratory distress Acute CHF (congestive heart failure) Qualifiers: Heart failure type: unspecified Qualified Code(s): I50.9 - Heart failure, unspecified Liver failure Qualifiers: Liver failure chronicity: acute Hepatic coma status: without hepatic coma Qualified Code(s): K72.00 - Acute and subacute hepatic failure without coma Acute kidney failure Qualifiers: Acute renal failure type: unspecified Qualified Code(s): N17.9 - Acute kidney failure, unspecified - Discharge Information *PRESCRIPTION DRUG MONITORING PROGRAM REVIEWED*: No *COPY OF PRESCRIPTION DRUG MONITORING REPORT IN PATIENT BEBA: No Forms: ED Department Discharge, [facility] Seps[facility] Event Note (ED) - Focused Exam Vital Signs: Vital Signs Temp Pulse Resp BP Pulse Ox 12/17/20 00:30 96.5 F L 110 H 30 H 159/98 H 75 L - My Orders Last 24 Hours: My Active Orders 12/17/20 00:25 EKG Documentation Completion [RC] STAT 12/17/20 00:26 Blood Culture x2 Reflex Set [OM.PC] Stat 12/17/20 01:18 CULTURE BLOOD [BC] Stat 12/17/20 02:32 CULTURE BLOOD [BC] Stat 12/17/20 02:39 CPAP Adult [RT BiPAP/CPAP] [RC] ASDIRECTED 12/17/20 03:06 REFLEX LACTIC ACID YES OR NO [CHEM] Routine 12/17/20 03:12 Urinary Catheter Assessment [RC] ASDIRECTED 12/17/20 03:15 Lorenzo Catheter Insertion [Insert Urinary Catheter] [OM.PC] Q24H - Assessment/Plan Last 24 Hours: My Active Orders 12/17/20 00:25 EKG Documentation Completion [RC] STAT 12/17/20 00:26 Blood Culture x2 Reflex Set [OM.PC] Stat 12/17/20 01:18 CULTURE BLOOD [BC] Stat 12/17/20 02:32 CULTURE BLOOD [BC] Stat 12/17/20 02:39 CPAP Adult [RT BiPAP/CPAP] [RC] ASDIRECTED 12/17/20 03:06 REFLEX LACTIC ACID YES OR NO [CHEM] Routine 12/17/20 03:12 Urinary Catheter Assessment [RC] ASDIRECTED 12/17/20 03:15 Lorenzo Catheter Insertion [Insert Urinary Catheter] [OM.PC] Q24H
[2020-12-17 02:05] LABS: ANION GAP 18.7 mEq/L (7-13); CHLORIDE,CL 98 mmol/L (98-107); SODIUM,NA 137 mmol/L (136-145)
[2020-12-17 02:10] LABS: CORONAVIRUS COVID-19 NAA NEGATIVE (NEGATIVE)
[2020-12-17 02:11] LABS: O2 DELIVERY DEVICE NASAL CANNULA; PCO2 ARTERIAL 57 mmHg (35-45)
[2020-12-17 02:12] LABS: O2 SATURATION ARTERIAL 50 % (95-100); PO2 ARTERIAL 39 mmHg (70-100)
[2020-12-17 02:13] LABS: ALLEN TEST POSITIVE
--- NOTE | 2020-12-17 02:52 | CR ---
PROCEDURE INFORMATION: Exam: XR Chest Exam date and time: 12/17/2020 1:28 AM Age: 50 years old Clinical indication: Other: Chest pain TECHNIQUE: Imaging protocol: XR of the chest. Views: 1 view. COMPARISON: CR Chest 1V Frontal 11/26/2020 5:06 PM FINDINGS: Lungs: Bilateral pulmonary venous congestive changes with findings consistent with mild CHF similar to the prior study. Pleural spaces: Unremarkable. No pleural effusion. No pneumothorax. Heart/Mediastinum: Cardiomegaly. Bones/joints: Unremarkable. IMPRESSION: Cardiomegaly with mild congestive heart failure changes similar to the prior study
[2020-12-17 03:06] VITALS: BP 159/98; PULSE 110
[2020-12-17] MEDS ORDERED: Furosemide 40 MG/4 ML VIAL IVPUSH ONE (03:08)
[2020-12-17] MEDS ORDERED: LORazepam 2 MG/ML SDV IVPUSH ONE ×2 (04:24→05:10)
--- NOTE | 2020-12-17 04:58 | CT ---
PROCEDURE INFORMATION: Exam: CT Head Without Contrast Exam date and time: 12/17/2020 4:45 AM Age: 50 years old Clinical indication: Other: Altered mentation; Additional info: Altered mental status TECHNIQUE: Imaging protocol: Computed tomography of the head without contrast. Radiation optimization: All CT scans at this facility use at least one of these dose optimization techniques: automated exposure control; mA and/or kV adjustment per patient size (includes targeted exams where dose is matched to clinical indication); or iterative reconstruction. COMPARISON: No relevant prior studies available. FINDINGS: Brain: Normal. No hemorrhage. Unremarkable white matter. No mass effect. Cerebral ventricles: No ventriculomegaly. Paranasal sinuses: Chronic frontal sinusitis changes. No fluid levels. Mastoid air cells: Visualized mastoid air cells are well aerated. Bones/joints: Chronic deformity of the nasal arch but no acute fracture or dislocation.. Soft tissues: Unremarkable. IMPRESSION: No acute intracranial abnormality.
== END 2020-12-17 05:45 ==
LOC: DL.ED 00:18
DX: I21.4 Non-ST elevation (NSTEMI) myocardial infarction (principal); I11.0 Hypertensive heart disease with heart failure; I50.9 Heart failure, unspecified; N17.9 Acute kidney failure, unspecified; K72.00 Acute and subacute hepatic failure without coma; E66.8 Other obesity; Z85.850 Personal history of malignant neoplasm of thyroid; Z20.822 Contact with and (suspected) exposure to COVID-19; Z88.0 Allergy status to penicillin; Z86.16 Personal history of COVID-19; Z68.30 Body mass index [BMI] 30.0-30.9, adult
CPT/HCPCS: 0240U; 36415; 36600; 51702; 70450; 71045; 80053; 80305-QW; 80307; 81001; 82803; 83605; 83735; 83880; 84484; 85025; 86140; 87040; 93005; 93010; 94660; 96374; 96375; 99284; 99285-25; J1940; J2060